=== PATIENT | female | born 1980 | race Caucasian/White ===

== ENCOUNTER 2020-09-28 10:16 | Outpatient (NON) | payer OTHER, SELFPAY ==
[2020-09-29 01:19] LABS: SARS-CoV-2 RNA PCR Positive
== END 2020-09-28 10:17 ==
LOC: ANHCOVIDDT 10:18
PROVIDERS: Visit Provider Physician Assistant
DX: U07.1 COVID-19 (principal)
CPT/HCPCS: 87635; C9803; U0003

== ENCOUNTER 2022-04-30 12:03 | Outpatient (CLI) | payer BC, SELFPAY ==
--- NOTE | ~2022-04-30 | XR_ITS ---
XR cervical spine 4-5V DATE: 04/30/2022 12:57 INDICATION: Neck pain, radiculopathy TECHNIQUE: AP, open-mouth, lateral and swimmer views COMPARISON: None FINDINGS: There is mild reversal of cervical curvature. C1 and C2 are normally aligned and the odontoid process is intact. There is slight anterolisthesis at C4-5. Moderate loss of disc space height and mild anterior and posterior spurring at C5-6. No fracture or dislocation or locked facet or prevertebral soft tissue swelling. IMPRESSION: Reversal of cervical curvature Minimal anterolisthesis at C4-5 Moderate degenerative disc disease at C5-6 Reviewed, dictated and finalized at location B.
== END 2022-04-30 12:04 | disposition home or self-care (01) ==
PROVIDERS: PCP Physician Assistant; Visit Provider Physician Assistant
DX: M54.12 Radiculopathy, cervical region (principal); M50.322 Other cervical disc degeneration at C5-C6 level
CPT/HCPCS: 72050